=== PATIENT | male | born 1985 | race Caucasian/White ===

== ENCOUNTER 2018-06-11 16:25 | Emergency (ER) | payer SELFPAY ==
[~2018-06-11] VITALS: Ht 188 cm; Wt 70.1 kg
[~2018-06-11 16:25] MED LIST: CLXOPS3 OP; LRT5 PO
[2018-06-11 16:27] VITALS: TEMP 37.3; Ht 188 cm; Wt 70.1 kg
--- NOTE | 2018-06-11 17:54 | DIAGNOSTIC IMAGING REPORT ---
BONY ORBITS 3 VIEWS CLINICAL HISTORY: Question metallic foreign body in the right eye/orbit. FINDINGS: 3 views of the bony orbits are obtained. No prior studies are available for comparison at the time of dictation. There is no radiodense/metallic foreign body seen in the region of the bony orbits. The bony orbits are intact as imaged. The visualized paranasal sinuses and the mastoid air cells appear clear. The imaged calvarium appears intact. IMPRESSION: There is no radiodense/metallic foreign body seen in the region of the bony orbits. Electronically signed by: Jad Ribera M.D. 06/11/2018 5:53 PM Dictated Date/Time: 06/11/2018 5:52 PM
[2018-06-11] MEDS ORDERED: PROPARACAINE HCL 0.5% OP SOLN 15 ML BTL OPR STA (17:55)
--- NOTE | 2018-06-11 18:16 | EMERGENCY ROOM VISIT NOTE ---
History First contact with patient: 16:38 Chief Complaint: EYE PAIN Stated Complaint: PAIN IN EYEBALL History of Present Illness The patient is a 32 year old male who presents to the Emergency Room via private vehicle accompanied by female with complaints of "pain in eyeball". The patient states that earlier today around 1:40 PM he was at home, cutting a metal pipe with a grinder brake lining. He notes that he felt something strike the lateral portion of his right eye. He notes that he then went to seek evaluation at a local urgent care who referred him here for evaluation. He notes that he was given numbing drops at that time and has no pain currently. He notes some blurred vision in the eye but believes that is secondary to irritation. He is unsure of his tetanus immunization and declines immunization here. Review of Systems A complete 6-point Review of Systems was discussed with the patient, with pertinent positives and negatives listed in the History of Present Illness. All remaining Review of Systems questions can be considered negative unless otherwise specified. Past Medical/Surgical History No pertinent. Family History No pertinent. Social History Smoking Status: Never Smoker Patient lives locally. Current/Historical Medications Scheduled Ciprofloxacin Hcl 0.3% Oph (Ciloxan Oph *), 1 DROP OP Q4HR Hydrocodone/Acetaminophen 5MG/500MG (Vicodin 5MG/500MG), 1 TABLET PO Q4HR PRN Miscellaneous Medications None (Patient States No Home Meds) Physical Exam Vital Signs Date Time Temp Pulse Resp B/P (MAP) Pulse Ox O2 Delivery O2 Flow Rate FiO2 06/11/18 18:26 74 20 155/90 99 06/11/18 16:27 37.3 104 18 172/70 99 Room Air Right Eye Acuity: 20/40 w/o corrective lenses Left Eye Acuity: 20/40 w/o corrective lenses Physical Exam VITAL SIGNS - Vital signs and nursing notes were reviewed. Stable. Afebrile. GENERAL -32-year-old male appearing his stated age. Communicates well with provider and answers questions appropriately. HEAD - Normocephalic, Atraumatic. No Esquivel's Sign or Raccoon's Eyes. No depressed skull fractures palpable. EYES - PERRL with EOMI bilaterally. Sclera without noticeable foreign body or excoriations. No injection noted in the left or right eye. Without subconjunctival hemorrhage. Palpebral conjunctiva pink and moist with no injection or discharge noted. Slit lamp examination performed as further described. With the skin retracted around the region of the lateral canthus laterally, unable to visualize what appears to be a lacrimation duct/edema of this region/questionable embedded foreign body. EARS - No deformities of external structures noted on gross examination bilaterally. Handle of malleus, umbo, cone of light, pars tensa/flaccid all easily visualized. NOSE - Midline and without cyanosis. Without discharge. MOUTH/OROPHARYNX - Without perioral cyanosis. Tongue midline with equal elevation of palate bilaterally. No tonsillar hypertrophy, erythema, or exudates noted. Fair dentition noted. Slit Lamp Examination was performed of the right eye(s). Alcaine drops were applied to the affected eye(s) for proper anesthetization. The affected eye(s) were stained with Fluorescein stain to precipitate adequate visualization of any conjunctival/scleral excoriations or ulcers. The patient's face was comfortably rested on the chin guard of the slit lamp apparatus. The lights were dimmed and the affected eye(s) were thoroughly examined under microscopy using the blue light. No uptake was present in the right eye. Additionally, the eye(s) were examined under microscopy using the regular light. Close examination revealed no foreign body visualized in the right eye or lateral canthal region. Patient tolerated the procedure well and no complications were met. Medical Decision & Procedures ER Provider Diagnostic Interpretation: BONY ORBITS 3 VIEWS CLINICAL HISTORY: Question metallic foreign body in the right eye/orbit. FINDINGS: 3 views of the bony orbits are obtained. No prior studies are available for comparison at the time of dictation. There is no radiodense/metallic foreign body seen in the region of the bony orbits. The bony orbits are intact as imaged. The visualized paranasal sinuses and the mastoid air cells appear clear. The imaged calvarium appears intact. IMPRESSION: There is no radiodense/metallic foreign body seen in the region of the bony orbits. Electronically signed by: Jad Ribera M.D. 06/11/2018 5:53 PM Dictated Date/Time: 06/11/2018 5:52 PM Medical Decision Patient was seen and evaluated as above in room D7. Review was performed of nursing notes and vital signs. After obtaining a thorough history and physical examination the above work up was performed. He presents to us today with questionable foreign body in the right lateral canthus. He is nontoxic on exam. Slit-lamp examination is within normal limits. There is a region in the right lateral canthus that is suspected to be irritation of this region. I was told by the accompanying female and the patient that they did try to remove what they thought was a foreign body in this region earlier today. I also had the attending physician examined the patient's eye and we both agree that this is likely normal anatomy and not retained foreign body. Because of the reported history of grinding/cutting metal I did believe that an x-ray was warranted. In our system here, there are no orders for plain foreign bodies of the eye therefore I did discuss this with the x-ray tech and subsequently the radiologist and was recommended to order "orbits for MRI" which would translate into an orbit 3 view for foreign body. This was performed with results as above. No foreign body. Upon reevaluation, the swelling/questionable foreign body in the right lateral canthus had nearly disappeared. Patient visual acuity is within normal limits essentially. At this time I believe that follow- up is important with ophthalmology with persistence of symptoms or return here with worsening. I do not believe that empiric antibiotic initiation is warranted. The patient was educated upon management, educated upon todays findings/results, educated upon symptoms in which to return, had questions answered prior to discharge, and was discharged home in good condition. I suspect most likely the patient was struck on the corner of the eye by an object that has since left the region and has left residual irritation. Case was discussed with the attending physician. In the evaluation and treatment of this patient, the following differential diagnoses were considered: Corneal Abrasion, Conjunctivitis, Eye Contusion, Globe Injury, Orbital Floor Injury (Blowout Fracture), Corneal Ulcer, Keratitis , Herpes Zoster Opthalmic, Blepharitis, Orbital Cellulitis, Iritis, Scleritis/ Episcleritis, Uveitis, Temporal Arteritis, Subconjunctival Hemorrhage. Impression Primary Impression: Eye discomfort Departure Information Dispostion Home / Self-Care Condition GOOD Referrals No Doctor, Assigned (PCP) Dc Fuentes MD Patient Instructions My [facility] Additional Instructions You have been treated in the Emergency Department for right eye irritation at this time in combination with x-ray and examination believe that no longer any foreign body in the eye. You may use saline eye flush to cleanse the eye which should be found over-the- counter. Please make sure this is for the eyes. For pain control, you can use the following [id number] medicines (if >12 yo): - Regular strength (325mg/tab) Tylenol (acetaminophen) 2 tabs every 4-6 hours as needed. Do not exceed 12 tablets in a 24 hour period. Avoid taking more than 3 grams (3000 mg) of Tylenol per day. This includes any other sources of acetaminophen you may take on a regular basis. - Regular strength (200 mg/tab) Advil (ibuprofen) 1-2 tabs every 4-6 hours as needed. Do not exceed a dose of 3200 mg per day. Avoid rubbing your eyes for the next few days as this can cause irritation. Wear sunglasses when outside to help minimize your pain. You should relax in a quiet, dark room to help minimize your symptoms. You should seek evaluation of your right eye discomfort by an household appliances salesperson following your visit to the Emergency Department. Please call them first thing Wednesday morning to schedule follow-up. Return to the emergency department if you develop the following symptoms despite treatment course outlined above: blurry vision, loss of vision, fever, intractable pain, increased redness, swelling, or purulent discharge.
[2018-06-11 18:26] VITALS: BP 155/90; PULSE 74; O2SAT 99
== END 2018-06-11 18:27 | disposition home or self-care (01) ==
LOC: C.EDB 16:26 → C.EDD 18:27
DX: H57.11 Ocular pain, right eye (principal)